=== PATIENT | female | born 1965 | race Caucasian/White ===

== ENCOUNTER 2016-07-11 06:40 | Day surgery (SDC) | payer BC ==
[~2016-07-11 06:40] MED LIST: Lactated Ringers 1,000 ML IV SCH; Sodium Chloride 0.9% 10 ML Syringe FLUSH PRN; Sodium Chloride 0.9% 2.5 ML Syringe FLUSH PRN
--- NOTE | 2016-07-11 07:09 | PCM.PREANE ---
Preanesthetic Assessment - Anesthesia/Transfusion/Family Hx Anesthesia History: Prior Anesthesia Without Reaction Transfusion History: No Prior Transfusion(s) - Physical Assessment O2 Sat by Pulse Oximetry: 99 Respiratory Rate: 16 Vital Signs: Last Vital Signs Temp 36 C 07/11/16 06:50 Pulse 84 07/11/16 06:50 Resp 16 07/11/16 06:50 BP 118/59 L 07/11/16 06:50 Pulse Ox 99 07/11/16 06:50 Height: 1.55 m Weight: 48.534 kg - Allergies Allergies/Adverse Reactions: Allergies Allergy/AdvReac Type Severity Reaction Status Date / Time Penicillins Allergy Hives Verified 07/08/16 13:29 sulfamethoxazole Allergy Rash Verified 07/08/16 13:29 [From Bactrim] trimethoprim [From Bactrim] Allergy Rash Verified 07/08/16 13:29 PreAnesthesia Questionnaire Genitourinary History: Reports: None [employer] History: Reports: Psychiatric History: Reports: Other (see below) Other Psychiatric History: states had panic attack after 2nd IV stick prior to having breast biopsy - Past Surgical History Head Surgeries/Procedures: Reports: None HEENT Surgical History: Reports: Oral surgery Female Surgical History: Reports: Breast biopsy (left under MAC) - SUBSTANCE USE Recreational Drug Use History: No - HOME MEDS Home Medications: Home Meds Ibuprofen 2 tab PO ASDIRECTED PRN 07/08/16 [History] - CURRENT (IN HOUSE) MEDS Current Meds: Current Medications Lactated Ringer's (Ringers, Lactated) 1,000 mls @ 125 mls/hr IV ASDIRECTED [facility] Last Admin: 07/11/16 06:52 Dose: 125 mls/hr Sodium Chloride (Saline Flush) 10 ml FLUSH ASDIRECTED PRN PRN Reason: Keep Vein Open Sodium Chloride (Saline Flush) 2.5 ml FLUSH ASDIRECTED PRN PRN Reason: Keep Vein Open Preanesthetic Assessment - ANESTHESIA/TRANSFUSION/FAMILY HX Anesthesia/Transfusion History: Prior Anesthesia Type of Anesthesia Reaction: Denies: Allergy, Anesthesia Awareness, Excessive Somnolence, Excessive Nausea/Vomiting, Excessive Itching, Excessive Shivering, Malignant Hyperthermia, Malignant Hyperthermia, Family History, Pseudocholinesterase Deficiency, Pseudocholinesterase Deficiency, Family History of, Urinary Retention, Unknown, Other (see below) Family History of Anesthesia Reaction: No Other Intubation History Comment: no history of intubation - REVIEW OF SYSTEMS Constitutional: Reports: no symptoms CLEARANCE REP: Reports: no symptoms Respiratory: Reports: no symptoms Cardiovascular: Reports: no symptoms Other: Reports: None - PHYSICAL ASSESSMENT O2 Sat by Pulse Oximetry: 99 RR: 16 Vital Signs: Last Vital Signs Temp 36 C 07/11/16 06:50 Pulse 84 07/11/16 06:50 Resp 16 07/11/16 06:50 BP 118/59 L 07/11/16 06:50 Pulse Ox 99 07/11/16 06:50 Height: 1.55 m Weight: 48.534 kg ASA Class: 1 Mental Status: Alert & Oriented x3 Airway Class: Mallampati = 2 Dentition: Reports: Normal Dentition Thyro-Mental Finger Breadths: 3 Mouth Opening Finger Breadths: 3 ROM/Head Extension: Full Respiratory Status: lungs clear to auscultation bilaterally Cardiovascular Status: regular rate & rhythm, normal S1, S2, no murmur, blood pressure WNL - ALLERGIES Allergies/Adverse Reactions: Allergies Allergy/AdvReac Type Severity Reaction Status Date / Time Penicillins Allergy Hives Verified 07/08/16 13:29 sulfamethoxazole Allergy Rash Verified 07/08/16 13:29 [From Bactrim] trimethoprim [From Bactrim] Allergy Rash Verified 07/08/16 13:29 - BLOOD Blood Available: No - ANESTHESIA PLAN Preop Beta Cherise: No Anesthesia Type Planned: MAC - ACKNOWLEDGEMENTS Pt an Appropriate Candidate for the Planned Anesthesia: Yes Alternatives and Risks of Anesthesia Discussed w Pt/Guardian: Yes Pt/Guardian Understands and Agrees with Anesthesia Plan: Yes
[2016-07-11] MEDS ORDERED: Lidocaine 2% 5 ML SDV ONE (07:17)
[2016-07-11] MEDS ORDERED: Propofol 200 MG/20 ML SDV ONE (07:18)
[2016-07-11] MEDS ORDERED: fentaNYL 100 MCG/2 ML SDV ONE (07:18)
[2016-07-11] MEDS ORDERED: Midazolam 1 MG/ML 2 ML SDV ONE (07:18)
--- NOTE | 2016-07-11 08:07 | PCM.OPNOTE ---
- General Post-Op/Procedure Note Date of Surgery/Procedure: 07/11/16 Operative Procedure(s): Colonoscopy Findings: normal colon Pre Op Diagnosis: Screening colonoscopy Post-Op Diagnosis: same Anesthesia Technique: MAC Primary Surgeon: Brianna Wesley Condition: Good
[2016-07-11 08:31] VITALS: BP 108/71
--- NOTE | 2016-07-11 08:31 | PCM.POSTAN ---
POST ANESTHESIA ASSESSMENT - MENTAL STATUS Mental Status: alert, oriented - RESPIRATORY Respiratory Status: respiratory rate WNL, airway patent, O2 saturation stable - CARDIOVASCULAR CV Status: pulse rate WNL, blood pressure stable - GASTROINTESTINAL GI Status: no symptoms - POST OP HYDRATION Hydration Status: adequate & stable - OBSERVATIONS Free Text/Narrative:: no anesthesia problems
--- NOTE | 2016-07-11 15:09 | OR ---
SURGEON: OTILIA VALDOVINOS MD DATE OF PROCEDURE: 07/11/2016 PREOPERATIVE DIAGNOSIS: Screening colonoscopy. POSTOPERATIVE DIAGNOSIS: Screening colonoscopy. PROCEDURE PERFORMED: Screening colonoscopy. INSTRUMENT USED: Olympus colonoscope. ANESTHESIA: MAC. EXTENT OF EXAM: To the cecum. PREPARATION: Good. LIMITATIONS: None. INDICATIONS FOR EXAMINATION: The patient is a 50-year-old female who presents for her first time screening colonoscopy. Her mother had a history of polyps but these were discovered much later in her life. The patient and I discussed the procedure as well as expected perioperative course. We discussed the risks, including bleeding, infection, or damage to surrounding structures, including perforation. The patient verbalized understanding and wished to proceed. PROCEDURE IN DETAIL: The patient was brought to the endoscopy suite and placed in left lateral decubitus position. A time-out was completed verifying the patient's name, age, date of , allergies, and procedure to be performed. Monitored anesthesia care was induced and oxygen was provided via face mask throughout the procedure. After adequate sedation was achieved, digital rectal exam was performed. This revealed mild hemorrhoidal disease. A well lubricated colonoscope was then inserted in the rectum and advanced under direct visualization at the level of cecum. The cecum was identified by both visual and anatomic landmarks. A photograph was taken of the cecal cap. Due to the significant looping, I was unable to retroflex the scope within the cecum. The scope was then fully withdrawn while examining the color, texture, anatomy, and integrity of the mucosa from the cecum to the anal canal. The findings were consistent with normal colonic mucosa. The scope was then brought into the rectum and retroflexed to allow visualization of the anal canal opening. This appeared normal. A photograph was taken. The scope was then straightened out and removed from the patient. The patient tolerated the procedure well. Cecum to anus time was 7 minutes. The patient was then transferred to recovery room in stable condition. ENDOSCOPIC DIAGNOSIS: Normal colonoscopy. RECOMMENDATION: Follow up in clinic in 10 years. MACEY SAHNI /[id number]
== END 2016-07-11 08:33 | disposition home or self-care (01) ==
LOC: MW.SDS 06:40
PROVIDERS: ATTEND Surgery
PROC: 0DJD8ZZ Inspection of Lower Intestinal Tract, Via Natural or Artificial Opening Endoscopic (ICD-10-PCS; principal; 2016-07-11)
DX: Z12.11 Encounter for screening for malignant neoplasm of colon (principal); Z83.71 Family history of colonic polyps; Z88.0 Allergy status to penicillin; Z88.1 Allergy status to other antibiotic agents; Z88.2 Allergy status to sulfonamides; Z98.890 Other specified postprocedural states
CPT/HCPCS: 45378; J2250; J3010; J7120; J2704